=== PATIENT | male | born 1990 | race Two or more races ===

== ENCOUNTER 2024-02-17 12:31 | Inpatient (IN) | payer MEDICAID ==
[~2024-02-17] VITALS: Ht 185.4 cm; Wt 100.0 kg
--- NOTE | 2024-02-17 12:42 | ED.PDOC ---
History of Present Illness HPI Comments 34M BIBA w/ no prior Hx associated to the c/c of groin pain. Pt reports on having a mass on the groin on Monday night 02/13/24 and states that he does not lift any weights during that time but his "dog pulls". EMS state that the pt was picked up from home for groin pain, today at 0800. PMHx of HIV. Social Hx of marijuana use, but denies tobacco and alcohol use. Denies chills, fever, N/V/D, SOB, CP or other associated symptom's, modifiers, or recent injuries or sick contact at this time. Time Seen by MD: 12:30 Reviewed Notes: Nurses Notes, Conveyor Monitor Notes, Medications, Allergies Allergies: Coded Allergies: NO KNOWN ALLERGIES (Unverified , 02/17/24) Information Source: Patient, Emergency Med Personnel Mode of Arrival: EMS Severity: Moderate Timing: Days Duration: Since onset, Days Prehospital treatment: None Past Medical History PAST MEDICAL HISTORY: HIV Surgical History: Denies all surgeries Family History Family History: Reviewed,noncontributory to illness, Unknown Social History Smoker: Non-Smoker Alcohol: Denies ETOH Use Drugs: Marijuana Lives In: Home Constitutional: reports: others (Groin pain); denies: chills, diaphoresis, f atigue, fever, malaise, sweats, weakness EENTM: denies: blurred vision, double vision, ear bleeding, ear discharge, ear drainage, ear pain, ear ringing, eye pain, eye redness, hearing loss, mouth pain, mouth swelling, nasal discharge, nose bleeding, nose congestion, nose pain, photophobia, tearing, throat pain, throat swelling, voice changes, others Respiratory: denies: cough, hemoptysis, orthopnea, SOB at rest, shortness of breath, SOB with excertion, stridor, wheezing, others Cardiovascular: denies: chest pain, dizzy spells, diaphoresis, Dyspnea on exertion, edema, irregular heart beat, left arm pain, lightheadedness, palpitations, PND, syncope, others Gastrointestinal: denies: abdomen distended, abdominal pain, blood streaked bowels, constipated, diarrhea, dysphagia, difficulty swallowing, hematemesis, melena, nausea, poor appetite, poor fluid intake, rectal bleeding, rectal pain, vomiting, others Genitourinary: denies: burning, dysuria, flank pain, frequency, hematuria, incontinence, penile discharge, penile sore, pain, testicle pain, testicle swelling, urgency, others Neurological: denies: dizziness, fainting, headache, left sided numbness, left sided weakness, numbness, paresthesia, pre-existing deficit, right sided numbness, right sided weakness, seizure, speech problems, tingling, tremors, weakness, others Musculoskeletal: denies: back pain, gout, joint pain, joint swelling, muscle pain, muscle stiffness, neck pain, others Integumetry: denies: bruises, change in color, change in hair/nails, dryness, laceration, lesions, lumps, rash, wounds, others Allergic/Immunocompromised: denies: Difficulty Healing, Frequent Infections, Hives, Itching, others Hematologic/Lymphatic: denies: anemia, blood clots, easy bleeding, easy bruising, swollen glands, others Endocrine: denies: excessive hunger, excessive sweating, excessive thirst, excessive urination, flushing, intolerance to cold, intolerance to heat, unexplained weight gain, unexplained weight loss, others Psychiatric: denies: anxiety, bipolar disorder, depression, hopeless, panic disorder, schizophrenia, sleepless, suicidal, others All Other Systems: Reviewed and Negative Physical Exam Exam Comments Left buttock area rear to the gluteal crest feels swollen w/ no abscess. Left inguinal is tender and swollen General Appearance: No Apparent Distress, Normal HEENT: Normal ENT Inspection, Pharynx Normal, TMs Normal Neck: Full Range of Motion, Non-Tender, Normal, Normal Inspection Respiratory: Chest Non-Tender, Lungs Clear, No Accessory Muscle Use, No Respiratory Distress, Normal Breath Sounds Cardiovascular: No Edema, No JVD, No Murmur, No Gallop, Normal Peripheral Pulses, Regular Rate/Rhythm Breast Exam: Deferred Gastrointestinal: No Organomegaly, Non Tender, No Pulsatile Mass, Normal Bowel Sounds, Soft Genitalia: Deferred Pelvic: Deferred Rectal: Deferred Extremities: No calf tenderness, Normal capillary refill, Normal inspection, Normal range of motion, Non-tender, No pedal edema Musculoskeletal : Apperance: Normal Neurologic: Alert, pharmacy associate II-XII nml as Tested, No Motor Deficits, Normal Affect, Normal Mood, No Sensory Deficits Cerebellar Function: Normal Reflexes: Normal Skin: Dry, Normal Color, Warm, Other (left inner buttock with swelling and tenderness. no crepitus, no discoloration. left gential normal. left inguinal nodes tender and enlarged. no open wounds ) Lymphatic: No Adenopathy Was a procedure done? Was a procedure done?: No Differential Dx Considerations may include: cellulitis, necrotizing fasciitis, abscess, adenopathy, sepsis, enteroretal fistula, hernia X-Ray, Labs, Meds, VS Vital Signs Date Time Temp Pulse Resp B/P (MAP) Pulse Ox O2 Delivery O2 Flow Rate FiO2 02/17/24 16:00 102.2 113 20 111/48 (69) 93 102.2 02/17/24 14:00 115 20 122/56 (78) 93 02/17/24 13:30 122/56 02/17/24 13:26 124 22 93 Room Air* 0 21 02/17/24 13:00 103.1 124 22 116/49 (71) 93 103.1 02/17/24 13:00 103.1 124 22 02/17/24 12:39 103.2 122 18 114/95 (101) 99 Lab Test 02/17/24 16:10 02/17/24 14:32 02/17/24 13:48 02/17/24 13:29 Range/Units Troponin I High Sensitivity Pending 32 32 </=54 ng/L POC Glucose 86 70-106 mg/dl White Blood Count 15.7 H 4.4-10.8 10^3/uL Red Blood Count 3.49 L 4.5-5.90 10^6/uL Hemoglobin 9.9 L 13.5-17.5 g/dL Hematocrit 30.7 L 41.0-53.0 % Mean Corpuscular Volume 88.1 80.0-100.0 fL Mean Corpuscular Hemoglobin 28.3 28.0-32.0 pg Mean Corpuscular Hemoglobin Concent 32.1 32.0-36.0 g/dL Red Cell Distribution Width 14.1 11.8-14.3 % Platelet Count 258 140-450 10^3/uL Mean Platelet Volume 8.3 6.9-10.8 fL Neutrophils (%) (Auto) 78.2 37.0-80.0 % Lymphocytes (%) (Auto) 13.7 10.0-50.0 % Monocytes (%) (Auto) 7.7 0.0-12.0 % Eosinophils (%) (Auto) 0.1 0.0-7.0 % Basophils (%) (Auto) 0.3 0.0-2.0 % Neutrophils # (Auto) 12.3 H 1.6-8.6 10 ^3/uL Lymphocytes # (Auto) 2.1 0.4-5.4 10 ^3/uL Monocytes # (Auto) 1.2 0-1.3 10 ^3/uL Eosinophils # (Auto) 0 0-0.8 10 ^3/uL Basophils # (Auto) 0 0-0.2 10 ^3/uL Nucleated Red Blood Cells 0.0 % Sodium Level 136 136-145 mmol/L Potassium Level 3.5 3.5-5.1 mmol/L Chloride Level 103 98-107 mmol/L Carbon Dioxide Level 23 20-31 mmol/L Anion Gap 10 5-15 Blood Urea Nitrogen 15 9-23 mg/dL Creatinine 1.17 0.700-1.30 mg/dL Glomerular Filtration Rate Calc 83 >90 mL/min BUN/Creatinine Ratio 12.8 10.0-20.0 Serum Glucose 92 74-106 mg/dL Lactic Acid Level 0.9 0.4-2.0 mmol/L Calcium Level 9.2 8.7-10.4 mg/dL Total Bilirubin 1.5 H 0.2-1.0 mg/dL Aspartate Amino Transferase (AST) 15 13-40 U/L Alanine Aminotransferase (ALT) 14 7-40 U/L Alkaline Phosphatase 85 46-116 U/L Total Protein 6.9 5.7-8.2 g/dL Albumin 3.8 3.2-4.8 g/dL Current Medications Medications (Trade) Dose Ordered Sig/Maninder Route Start Time Stop Time Status Last Admin Sodium Chloride 3,000 ml @ 1,000 mls/hr Q3H ONCE IV 02/17/24 13:15 02/17/24 14:20 DC 02/17/24 13:15 Sodium Chloride 2,400 ml @ 2,400 mls/hr ONCE ONCE IV 02/17/24 13:30 02/17/24 14:29 DC 02/17/24 13:58 Piperacillin Sod/ Tazobactam Sod 100 ml @ 25 mls/hr Q8HR IV 02/17/24 14:00 02/17/24 13:57 Metronidazole 100 ml @ 100 mls/hr ONCE ONCE IV 02/17/24 13:30 02/17/24 14:29 DC 02/17/24 13:57 Time of 1ST Reevaluation: 13:00 Reevaluation 1ST: Unchanged Time of 2ND Reevaluation: 16:48 Reevaluation 2ND: Improved (nuclear monitoring technician- nsr) Time of 3RD Reevaluation: 16:51 Reevaluation 3RD: Improved (nuclear monitoring technician-nsr) Patient Education/Counseling: Diagnosis, Treatment, Prognosis Family Education/Counseling: No Family Present Additional Information - The following tests were ordered, and results were reviewed by me: (Labs, X- Ray, EKG) - Additional information was gathered from interviewing the following independent Historian:EMT - I reviewed and agreed with the following test results read by other provider: X-ray, CT - I discussed treatments and results with medical personnel and chain sales consultant due to pt's immunocompromised state, necrotizing fasciitis was considered a high differential. ct was ordered and antibiotic was ordered. the ct did not show abscess or signs of fasciitis. pt has severe cellulitis and reactive inguinal adenopathy. he will be admitted Sepsis Sepsis Reasesment Focused Exam Sepsis focused exam: focus exam completed, time: (450) Departure 1 Departure Time of Disposition: 16:52 Impression: Primary Impression: Sepsis Qualified Codes: A41.9 - Sepsis, unspecified organism Additional Impressions: Cellulitis Qualified Codes: L03.317 - Cellulitis of buttock Inguinal adenopathy HIV (human immunodeficiency virus infection) Qualified Codes: Z21 - Asymptomatic human immunodeficiency virus [hiv] infection status Disposition: 09 ADMITTED INPATIENT Admit to: [facility] Condition: Serious Critical Care Note Critical Care Time?: Yes (55 min-critical care time only) Critical care comment: due to the likelihood of patients condition suddenly deteriorating, the care requires my highest level of attention, readiness to intervene. my critical care include assessing and reassessing of patient's condition, response to treatments, ordering the appropriate tests, reviewing the results, ordering of treatments, discussing the care with medical personnel and consultants, and formulating a treatment plan, as well a reviewing various medical records. this include at least 50% face-face interaction, and does not include any procedures Stability Stability form required: No I personally scribed for VIVEK PLUMMER MD ([email or web address]) on 02/17/24 at 12:42. Electronically submitted by Raymundo Clay ([email or web address]). I personally scribed for VIVEK PLUMMER MD ([email or web address]) on 02/17/24 at 13:09. Electronically submitted by Raymundo Clay ([employer]). VIVEK PLUMMER MD Feb 17, 2024 12:42
[2024-02-17] MEDS: SODIUM CHLORIDE 0.9% 3,000 ML IV ONE (13:15)
[2024-02-17 13:26] VITALS: PULSE 124; RESP 22; O2SAT 93
[2024-02-17] MEDS: NOREPINEPHRINE 8 MG/250ML KIT 250 ML IV SCH (13:30)
[2024-02-17 13:50] LABS: Basophils # (auto) 0 10 ^3/uL (0-0.2); Basophils % (auto) 0.3 % (0.0-2.0); Eosinophils # (auto) 0 10 ^3/uL (0-0.8); Eosinophils % (auto) 0.1 % (0.0-7.0); Hematocrit 30.7 % (41.0-53.0); Hemoglobin 9.9 g/dL (13.5-17.5); Lymphocytes # (auto) 2.1 10 ^3/uL (0.4-5.4); Lymphocytes % (auto) 13.7 % (10.0-50.0); Mean Corpuscular Hemoglobin 28.3 pg (28.0-32.0); Mean Corpuscular Hgb Conc. 32.1 g/dL (32.0-36.0); Mean Corpuscular Volume 88.1 fL (80.0-100.0); Monocytes # (auto) 1.2 10 ^3/uL (0-1.3); Monocytes % (auto) 7.7 % (0.0-12.0); Neutrophils # (auto) 12.3 10 ^3/uL (1.6-8.6); Neutrophils % (auto) 78.2 % (37.0-80.0); Platelet Count (auto) 258 10^3/uL (140-450); Red Blood Cells 3.49 10^6/uL (4.5-5.90); Red Cell Distribution Width 14.1 % (11.8-14.3); White Blood Cell 15.7 10^3/uL (4.4-10.8)
[2024-02-17] MEDS: metroNIDAZOLE 500MG/100ML 100 ML IV ONE (13:57)
[2024-02-17] MEDS: PIPERACILLIN-TAZO 4.5GM 100 ML IV SCH (13:57)
[2024-02-17] MEDS: SODIUM CHLORIDE 0.9% 2,400 ML IV ONE (13:58)
[2024-02-17 14:07] LABS: Alanine Aminotransferase 14 U/L (7-40); Albumin 3.8 g/dL (3.2-4.8); Alkaline Phosphatase 85 U/L (46-116); Anion Gap 10 (5-15); Aspartate Aminotransferase 15 U/L (13-40); BUN/Creatinine Ratio 12.8 (10.0-20.0); Bilirubin, Total 1.5 mg/dL (0.2-1.0); Blood Urea Nitrogen 15 mg/dL (9-23); Calcium 9.2 mg/dL (8.7-10.4); Carbon Dioxide 23 mmol/L (20-31); Chloride 103 mmol/L (98-107); Glucose 92 mg/dL (74-106); Potassium 3.5 mmol/L (3.5-5.1); Sodium 136 mmol/L (136-145); Total Protein 6.9 g/dL (5.7-8.2)
[2024-02-17] MEDS: IOHEXOL 300 MG/ML 100ML BOTTLE IJ ONE (14:46)
--- NOTE | 2024-02-17 16:36 | DVH ---
Exam: CT PELVIS WITH CONTRAST ONLY History: r/o left gluteal abscess, necrotizing fasciitis Comparison Study: None available at time of dictation. Technique: Multidetector CT of the pelvis was performed from iliac crests to pubic symphysis after th e administration of intravenous contrast was administered during this examination. Portal venous imag ing was obtained. Axial, coronal and sagittal multiplanar reformats were performed by the technologis t on a separate workstation. Radiation Dose : CT Dose: CTDI volume is 16.07 mGy. Dose-length product is 598.94 mGy*cm Findings: There is mild soft tissue edema of the pelvis and upper thigh with significant left and moderate righ t medial inferior buttock soft tissue edema . There is no associated drainable fluid collection. There is extension of the soft tissue edema to the scrotum. Bilateral inguinal lymphadenopathy measuring up to 1.8 cm in short axis on the left 1.1 cm in short a xis on the right which are most likely reactive. Fluid-filled nondistended small bowel loops are noted over the lower abdomen and pelvis. Mild rectal wall thickening which is most likely from inadequate distension. No aneurysm or dissection of the visualized vasculatures. No significant atherosclerotic disease. The urinary bladder is unremarkable. Sclerotic foci of the pelvic bone and left proximal femur which may represent bone islands. Subchondral cystic changes of the right femoral head. IMPRESSION: There is mild soft tissue edema of the pelvis and upper thigh with significant left and moderate righ t medial inferior buttock soft tissue edema . There is no associated foci of air or drainable fluid c ollection. Bilateral inguinal lymphadenopathy which are most likely reactive.
[2024-02-17] MEDS: SODIUM CHLORIDE 0.9% 1,000 ML IV SCH (17:30)
[2024-02-17] MEDS ORDERED: TEMAZEPAM 15 MG CAP PO PRN (17:30)
[2024-02-17] MEDS ORDERED: DOCUSATE SOD 100 MG CAP PO PRN (17:30)
[2024-02-17] MEDS ORDERED: VANCOMYCIN PER PHARMACY 0 MG IV SCH (17:30)
[2024-02-17] MEDS ORDERED: MAALOX PLUS or MAALOX 30 ML PO PRN (17:30)
--- NOTE | 2024-02-17 17:49 | DVHHP2 ---
History of Present Illness Reason for Visit: groin pain History of Present Illness 34-year-old male was brought in by ambulance with multiple word complaints including the fact that he is having severe groin pain patient does have a past medical history of HIV and it is believed that currently have episodes of sepsis possibly secondary to a cellulitic infection some labs still pending patient's main complaint was having severe pain in the groin described as a mass CT pelvis shows soft tissue swelling and edema cellulitis is suspected patient was recommended for admission and further evaluation and management for sepsis in the setting of suspected cellulitis Infectious disease: HIV Review of Systems Constitutional: Yes: Fever, Weakness; No: Chills, Sweats, Malaise, Other Eyes: No: Pain, Vision change, Conjunctivae inflammation, Eyelid inflammation, Other, Redness Respiratory: No: Cough, Dry, Shortness of breath, SOB with excertion, Wheezing, Hemoptysis, Pleuritic Pain, Sputum, Wheezing, Other Cardiovascular: No: Chest Pain, Palpitations, Orthopnea, Paroxysmal Noc. Dyspnea, Edema, Lt Headedness, Other Gastrointestinal: Abdominal Pain; No: Nausea, Vomiting, Diarrhea, Constipation, Melena, Hematochezia, Other Genitourinary: No Dysuria, No Frequency, No Incontinence, No Hematuria, No Retention, No Other Musculoskeletal: leg pain; No: other, neck pain, shoulder pain, arm pain, back pain, hand pain, foot pain Skin: Rash; No: Lesions, Jaundice, Bruising, Other Neurological: No: Weakness, Numbness, Incoordination, Change in speech, Confusion, Seizures, Other Allergies: Coded Allergies: NO KNOWN ALLERGIES (Unverified , 02/17/24) Medications Current Medications Medications Dose Ordered Sig/Maninder Route Start Time Stop Time Status Last Admin Dose Admin Norepinephrine Bitartrate 250 ml @ 3.75 mls/hr Q24H IV 02/17/24 13:30 Piperacillin Sod/ Tazobactam Sod 100 ml @ 25 mls/hr Q8HR IV 02/17/24 14:00 02/17/24 13:57 25 MLS/HR Exam Vital Signs Vital Signs Date Time Temp Pulse Resp B/P (MAP) Pulse Ox O2 Delivery O2 Flow Rate FiO2 02/17/24 16:00 102.2 113 20 111/48 (69) 93 102.2 11/30/24 13:26 Room Air* 0 21 General Appearance: Alert, Oriented X3, Cooperative, moderate distress HEENT: Atraumatic, PERRLA, EOMI Respiratory: Normal air movement Cardiovascular: Regular rate (Tachycardia), Normal S1, Normal S2 Abdominal: Normal bowel sounds, Soft, No tenderness Extremities: No clubbing, No cyanosis, No edema (Erythema in the groin area) Skin: No rashes (Erythema in the groin and pelvis induration), No breakdown, No significant lesion Labs/Xrays Labs Test 02/17/24 16:10 02/17/24 13:48 02/17/24 13:29 Range/Units Troponin I High Sensitivity 33 </=54 ng/L POC Glucose 86 70-106 mg/dl White Blood Count 15.7 H 4.4-10.8 10^3/uL Red Blood Count 3.49 L 4.5-5.90 10^6/uL Hemoglobin 9.9 L 13.5-17.5 g/dL Hematocrit 30.7 L 41.0-53.0 % Mean Corpuscular Volume 88.1 80.0-100.0 fL Mean Corpuscular Hemoglobin 28.3 28.0-32.0 pg Mean Corpuscular Hemoglobin Concent 32.1 32.0-36.0 g/dL Red Cell Distribution Width 14.1 11.8-14.3 % Platelet Count 258 140-450 10^3/uL Mean Platelet Volume 8.3 6.9-10.8 fL Neutrophils (%) (Auto) 78.2 37.0-80.0 % Lymphocytes (%) (Auto) 13.7 10.0-50.0 % Monocytes (%) (Auto) 7.7 0.0-12.0 % Eosinophils (%) (Auto) 0.1 0.0-7.0 % Basophils (%) (Auto) 0.3 0.0-2.0 % Neutrophils # (Auto) 12.3 H 1.6-8.6 10 ^3/uL Lymphocytes # (Auto) 2.1 0.4-5.4 10 ^3/uL Monocytes # (Auto) 1.2 0-1.3 10 ^3/uL Eosinophils # (Auto) 0 0-0.8 10 ^3/uL Basophils # (Auto) 0 0-0.2 10 ^3/uL Nucleated Red Blood Cells 0.0 % Sodium Level 136 136-145 mmol/L Potassium Level 3.5 3.5-5.1 mmol/L Chloride Level 103 98-107 mmol/L Carbon Dioxide Level 23 20-31 mmol/L Anion Gap 10 5-15 Blood Urea Nitrogen 15 9-23 mg/dL Creatinine 1.17 0.700-1.30 mg/dL Glomerular Filtration Rate Calc 83 >90 mL/min BUN/Creatinine Ratio 12.8 10.0-20.0 Serum Glucose 92 74-106 mg/dL Lactic Acid Level 0.9 0.4-2.0 mmol/L Calcium Level 9.2 8.7-10.4 mg/dL Total Bilirubin 1.5 H 0.2-1.0 mg/dL Aspartate Amino Transferase (AST) 15 13-40 U/L Alanine Aminotransferase (ALT) 14 7-40 U/L Alkaline Phosphatase 85 46-116 U/L Total Protein 6.9 5.7-8.2 g/dL Albumin 3.8 3.2-4.8 g/dL Assessment/Plan Assessment/Plan Admit to telemetry Sepsis believed to be secondary to cellulitis UA still pending Drug screen pending Possibility that infection and sepsis secondary to injection of the location Unconfirmed ID consultation for HIV +sepsis management IV hydration IV antibiotics dual therapy Monitor closely for signs of worsening condition Patient with elevated temperatures Continue with antipyretics Monitor for worsening signs of sepsis consider upgrading to PADILLA if necessary Also monitor for drug reactions or drug like withdrawal Chest x-ray ordered for evaluation of lungs study pending Plan discussed with: Patient My Orders Orders - NERI JOHANSEN MD Procedure Category Date Status Time * Infectious Anai- CONS 02/17/24 Transmitted Erik Mercado 17:19 Vancomycin Per PHA 02/17/24 Logged Pharmacy 17:30 Piperacillin-Tazob PHA 02/17/24 Logged 3.375gm (Zosyn 3.375g 22:00 Admit ADMIT 02/17/24 Transmitted 17:19 Code Status CODE 02/17/24 Transmitted 17:19 Vital Signs [facility] 02/17/24 In Process 17:19 Review Orders With ELIZABETH 02/17/24 In Process Adm 17:19 Consistent DIET 02/17/24 Transmitted Carb(Ccho)Diabetes Dinner Sodium Chloride 0.9% [facility] 02/17/24 Logged 17:30 Lorazepam Tablet [facility] 02/17/24 Logged (Ativan Tablet) 17:30 Alum & Mag [facility] 02/17/24 Logged Hydrox-Simethicone 17:30 Docusate Sodium [facility] 02/17/24 Logged Capsule (Colace 17:30 Acetaminophen Tablet [facility] 02/17/24 Logged (Tylenol Tablet) 17:30 Temazepam (Restoril) PHA 02/17/24 Logged 17:30 Notify Md Of Changes [facility] 02/17/24 In Process From Base 17:19 Advance Directive ELIZABETH 02/17/24 In Process 17:19 Basic Metabolic Panel LAB 02/18/24 Verified 04:00 Urinalysis LAB 02/17/24 Logged 17:19 Complete Blood Count LAB 02/18/24 Verified 04:00 Patient Condition ORDERS 02/17/24 Transmitted 17:19 Allergies ELIZABETH 02/17/24 In Process 17:19 Hydrocodone-Acet PH[facility] 02/17/24 Logged 5/325mg Tab (Minerva 17:30 Ondansetron Hcl PHA 02/17/24 Logged (Zofran) 17:30 Morphine Sulfate PHA 02/17/24 Logged Injection 17:30 Notify Md Of Changes [facility] 02/17/24 In Process From Base 17:19 Oriental Rug Stretcher For [facility] 02/17/24 In Process 24 Hours 17:19 Oxygen By Nasal RT 02/17/24 Transmitted Cannula 17:19 Chest Xray 1 View XY 02/17/24 Logged 17:19 Problem List: (1) Cellulitis (2) Sepsis (3) HIV (human immunodeficiency virus infection) (4) Inguinal adenopathy Date of Service: Feb 17, 2024 Billing Provider: NERI JOHANSEN MD Common Visit Codes: 40594-[id number] INP/OBS CARE (HIGH) NERI JOHANSEN MD Feb 17, 2024 17:49
--- NOTE | 2024-02-17 18:20 | DVH ---
CHEST RADIOGRAPH Indication: sepsis Technique: Single frontal view of the chest was obtained Comparison: None FINDINGS: Lines and Tubes: None Lungs: No focal consolidation. Pleura: No effusion. No pneumothorax. Cardiomediastinal contours: Unremarkable Bones: No acute osseous abnormality. IMPRESSION: No acute cardiopulmonary disease.
[2024-02-17 19:29] VITALS: PULSE 121; RESP 22; O2SAT 93
[2024-02-17 19:43] LABS: Urine Bacteria FEW /hpf (None Seen); Urine Blood 1+ /uL (Negative); Urine Clarity Clear (Clear); Urine Color Yellow (Yellow); Urine Protein, UAD 1+ (Negative); Urine Urobilinogen 2 mg/dL (Negative); Urine WBC <1 /hpf (0 - 3); Urine pH 6.5 (5.0-9.0)
[2024-02-17 19:44] LABS: Urine Specific Gravity > 1.035 (1.001-1.035)
[2024-02-17] MEDS: VANCOMYCIN 1GM/250ML KIT 200 ML IV SCH (19:48)
[2024-02-17] MEDS: ACETAMINOPHEN 325 MG TAB PO PRN (21:35)
[2024-02-17] MEDS: LORazepam 0.5 MG TAB PO PRN (21:35)
[2024-02-17] MEDS: MORPHINE SULFATE INJ 2 MG/ml SYRG IV PRN (21:37)
[2024-02-17] MEDS: PIPERACILLIN-TAZOB 3.375GM 100 ML IV SCH (23:10)
[2024-02-18 06:40] LABS: Basophils # (auto) 0 10 ^3/uL (0-0.2); Basophils % (auto) 0.2 % (0.0-2.0); Eosinophils # (auto) 0.1 10 ^3/uL (0-0.8); Eosinophils % (auto) 0.3 % (0.0-7.0); Hematocrit 35.4 % (41.0-53.0); Lymphocytes # (auto) 2.5 10 ^3/uL (0.4-5.4); Lymphocytes % (auto) 12.9 % (10.0-50.0); Mean Corpuscular Hemoglobin 28.4 pg (28.0-32.0); Mean Corpuscular Hgb Conc. 31.1 g/dL (32.0-36.0); Mean Corpuscular Volume 91.2 fL (80.0-100.0); Monocytes # (auto) 1.2 10 ^3/uL (0-1.3); Neutrophils # (auto) 15.8 10 ^3/uL (1.6-8.6); Neutrophils % (auto) 80.6 % (37.0-80.0); Nucleated Red Blood Cells % 0.1 %; Platelet Count (auto) 264 10^3/uL (140-450); Red Blood Cells 3.88 10^6/uL (4.5-5.90); Red Cell Distribution Width 14.2 % (11.8-14.3); White Blood Cell 19.6 10^3/uL (4.4-10.8)
[2024-02-18 06:49] LABS: Chloride 103 mmol/L (98-107)
[2024-02-18 06:50] LABS: Anion Gap 9 (5-15); Calcium 9.4 mg/dL (8.7-10.4); Carbon Dioxide 23 mmol/L (20-31)
[2024-02-18 06:55] LABS: BUN/Creatinine Ratio 8.2 (10.0-20.0); Blood Urea Nitrogen 10 mg/dL (9-23); Glucose 102 mg/dL (74-106); Sodium 135 mmol/L (136-145)
[2024-02-18 07:30] VITALS: PULSE 91; RESP 14; O2SAT 98
[2024-02-18] MEDS: VANCOMYCIN 1GM/250ML KIT 200 ML IV SCH (11:19)
[2024-02-18] MEDS: PIPERACILLIN-TAZOB 3.375GM 100 ML IV SCH (12:22)
--- NOTE | 2024-02-18 13:28 | DVHPN2 ---
Reviewed: Care Plan, H&P, Labs, Medications, Previous Orders, Radiology Changes from previous H/P or p: No Changes Eyes: No Pain, No Vision change, No Conjunctivae inflammation, No Eyelid inflammation, No Other, No Redness Cardiovascular: No Chest Pain, No Palpitations, No Orthopnea, No Paroxysmal Noc. Dyspnea, No Edema, No Lt Headedness, No Other Respiratory: No Cough, No Dry, No Shortness of breath, No SOB with excertion, No Wheezing, No Hemoptysis, No Pleuritic Pain, No Sputum, No Other Gastrointestinal: No Nausea, No Vomiting; Abdominal Pain; No Diarrhea, No Constipation, No Melena, No Hematochezia, No Other Genitourinary: No Dysuria, No Frequency, No Incontinence, No Hematuria, No Retention, No Other Musculoskeletal: No other, No neck pain, No shoulder pain, No arm pain, No back pain, No hand pain; leg pain; No foot pain Skin: Rash; No Lesions, No Jaundice, No Bruising, No Other Objective Vitals Vital Signs Date Time Temp Pulse Resp B/P (MAP) Pulse Ox O2 Delivery O2 Flow Rate FiO2 02/18/24 12:00 106 02/18/24 11:49 16 125/37 02/18/24 07:30 98 02/18/24 07:30 Room Air* 0 21 02/17/24 22:35 100.3 Intake/Output Intake and Output 02/18/24 07:00 Intake Total 4350 ml Balance 4350 ml Intake IV Total 4350 ml Medications Current Medications Medications Dose Ordered Sig/Maninder Route Start Time Stop Time Status Last Admin Dose Admin Norepinephrine Bitartrate 250 ml @ 3.75 mls/hr Q24H IV 02/17/24 13:30 Vancomycin HCl 0 ml @ 0 mls/hr UD IV 02/17/24 17:30 Sodium Chloride 1,000 ml @ 100 mls/hr Q10H IV 02/17/24 17:30 02/18/24 12:12 100 MLS/HR Lorazepam 0.5 mg Q6HP PRN PO 02/17/24 17:30 02/17/24 21:35 0.5 MG Al Hydrox/Mg Hydrox/Simethicone 30 ml Q6HP PRN PO 02/17/24 17:30 Docusate Sodium 100 mg BIDPRN PRN PO 02/17/24 17:30 Acetaminophen 650 mg Q6HP PRN PO 02/17/24 17:30 02/17/24 21:35 650 MG Temazepam 15 mg QHSP PRN PO 02/17/24 17:30 Acetaminophen/ Hydrocodone Bitart 1 tab Q4HP PRN PO 02/17/24 17:30 Ondansetron HCl 4 mg Q4HP PRN IV 02/17/24 17:30 Morphine Sulfate 2 mg Q4HPRN PRN IV 02/17/24 17:30 02/18/24 11:19 2 MG Piperacillin Sod/ Tazobactam Sod 100 ml @ 25 mls/hr Q8H IV 02/18/24 12:00 02/18/24 12:22 25 MLS/HR Vancomycin HCl 200 ml @ 200 mls/hr Q8H IV 02/18/24 09:00 02/18/24 11:19 200 MLS/HR Laboratory Results Laboratory Tests 02/18/24 06:19 Chemistry Test 02/17/24 13:29 02/18/24 06:19 Albumin 3.8 g/dL (3.2-4.8) Calcium Level 9.2 mg/dL (8.7-10.4) 9.4 mg/dL (8.7-10.4) Total Protein 6.9 g/dL (5.7-8.2) LFT Test 02/17/24 13:29 Alanine Aminotransferase (ALT) 14 U/L (7-40) Alkaline Phosphatase 85 U/L (46-116) Aspartate Amino Transferase (AST) 15 U/L (13-40) Total Bilirubin 1.5 mg/dL (0.2-1.0) H Urinalysis Test 02/17/24 19:13 Urine Color Yellow (Yellow) Urine Clarity Clear (Clear) Urine pH 6.5 (5.0-9.0) Urine Specific Stewart > 1.035 (1.001-1.035) Urine Protein 1+ (Negative) H Urine Ketones Negative (Negative) Urine Blood 1+ /uL (Negative) H Urine Nitrite Negative (Negative) Urine Bilirubin Negative (Negative) Urine Urobilinogen 2 mg/dL (Negative) H Urine Leukocyte Esterase Negative /uL (Negative) Urine RBC 33 /hpf (0 - 3) Urine WBC <1 /hpf (0 - 3) Urine Squamous Epithelial Cells Few /hpf (<5) Urine Bacteria Few /hpf (None Seen) H Urine Glucose Normal mg/dL (Normal) Labs and/or images reviewed: Labs reviewed by me, Image(s) reviewed by me Assessment/Plan Assessment/Plan Sepsis secondary to cellulitis of the pelvis: Vancomycin Zosyn History of necrotizing fasciitis History of left gluteal abscess HIV infection Plan discussed with: Patient Date of Service: Feb 18, 2024 Billing Provider: CHANTEL CALLAHAN MD Common Visit Codes: [id number] INP/OBS CARE(HIGH) CHANTEL CALLAHAN MD Feb 18, 2024 13:28
[2024-02-18 17:57] VITALS: BP 94/55; PULSE 95; RESP 18; TEMP 98.8; O2SAT 96
[2024-02-18] MEDS: HYDROcodone-ACET 5/325MG TAB PO PRN (19:21)
[2024-02-18 20:00] VITALS: PULSE 98; RESP 17; O2SAT 97
[2024-02-18 21:00] VITALS: BP 106/53; PULSE 94; RESP 17; TEMP 97.9; O2SAT 96
--- NOTE | 2024-02-18 23:35 | DVHINCON2 ---
"Date of service: Feb 18, 2024 Family History: Patient reports no known family medical history. Allergies: Coded Allergies: NO KNOWN ALLERGIES (Unverified , 02/17/24) Current Medications Current Medications Medications (Trade) Dose Ordered Sig/Maninder Route PRN Reason Start Time Stop Time Status Last Admin Piperacillin Sod/ Tazobactam Sod 100 ml @ 25 mls/hr Q8H IV 02/18/24 12:00 02/18/24 20:44 Vancomycin HCl 200 ml @ 200 mls/hr Q8H IV 02/18/24 09:00 02/18/24 17:10 Vital Signs Vital Signs Date Time Temp Pulse Resp B/P (MAP) Pulse Ox O2 Delivery O2 Flow Rate FiO2 02/18/24 21:00 97.9 94 17 106/53 (70) 96 97.9 02/18/24 17:57 Room Air* 0 21 Labs/Diagnostic Data Labs Test 02/18/24 06:19 02/17/24 19:13 02/17/24 16:10 02/17/24 13:48 Range/Units White Blood Count 19.6 H 4.4-10.8 10^3/uL Red Blood Count 3.88 L 4.5-5.90 10^6/uL Hemoglobin 11.0 L 13.5-17.5 g/dL Hematocrit 35.4 #L 41.0-53.0 % Mean Corpuscular Volume 91.2 80.0-100.0 fL Mean Corpuscular Hemoglobin 28.4 28.0-32.0 pg Mean Corpuscular Hemoglobin Concent 31.1 L 32.0-36.0 g/dL Red Cell Distribution Width 14.2 11.8-14.3 % Platelet Count 264 140-450 10^3/uL Mean Platelet Volume 8.0 6.9-10.8 fL Neutrophils (%) (Auto) 80.6 H 37.0-80.0 % Lymphocytes (%) (Auto) 12.9 10.0-50.0 % Monocytes (%) (Auto) 6.0 0.0-12.0 % Eosinophils (%) (Auto) 0.3 0.0-7.0 % Basophils (%) (Auto) 0.2 0.0-2.0 % Neutrophils # (Auto) 15.8 H 1.6-8.6 10 ^3/uL Lymphocytes # (Auto) 2.5 0.4-5.4 10 ^3/uL Monocytes # (Auto) 1.2 0-1.3 10 ^3/uL Eosinophils # (Auto) 0.1 0-0.8 10 ^3/uL Basophils # (Auto) 0 0-0.2 10 ^3/uL Nucleated Red Blood Cells 0.1 % Sodium Level 135 L 136-145 mmol/L Potassium Level 4.0 3.5-5.1 mmol/L Chloride Level 103 98-107 mmol/L Carbon Dioxide Level 23 20-31 mmol/L Anion Gap 9 5-15 Blood Urea Nitrogen 10 9-23 mg/dL Creatinine 1.22 0.700-1.30 mg/dL Glomerular Filtration Rate Calc 79 >90 mL/min BUN/Creatinine Ratio 8.2 L 10.0-20.0 Serum Glucose 102 74-106 mg/dL Calcium Level 9.4 8.7-10.4 mg/dL Urine Color Yellow Yellow Urine Clarity Clear Clear Urine pH 6.5 5.0-9.0 Urine Specific [place] > 1.035 H 1.001-1.035 Urine Protein 1+ H Negative Urine Ketones Negative Negative Urine Blood 1+ H Negative /uL Urine Nitrite Negative Negative Urine Bilirubin Negative Negative Urine Urobilinogen 2 H Negative mg/dL Urine Leukocyte Esterase Negative Negative /uL Urine RBC 33 0 - 3 /hpf Urine WBC <1 0 - 3 /hpf Urine Squamous Epithelial Cells Few <5 /hpf Urine Bacteria Few H None Seen /hpf Urine Glucose Normal Normal mg/dL Troponin I High Sensitivity 33 </=54 ng/L POC Glucose 86 70-106 mg/dl Test 02/17/24 13:29 Range/Units Lactic Acid Level 0.9 0.4-2.0 mmol/L Total Bilirubin 1.5 H 0.2-1.0 mg/dL Aspartate Amino Transferase (AST) 15 13-40 U/L Alanine Aminotransferase (ALT) 14 7-40 U/L Alkaline Phosphatase 85 46-116 U/L Total Protein 6.9 5.7-8.2 g/dL Albumin 3.8 3.2-4.8 g/dL Microbiology Date/Time Source Procedure Growth Status 02/17/24 13:29 Blood Blood Culture - Preliminary NO GROWTH AFTER 24 HOURS OF INCUBATION. Resulted Problems(with codes): (1) Cellulitis (2) Sepsis (3) HIV (human immunodeficiency virus infection) (4) Inguinal adenopathy Plan/Recommendation ASSESSMENT AND PLAN: ID Problem List: - Recurrent groin cellulitis - HIV infection - hx of Syphilis - hx of Gonorrhea - Severe groin pain - Sepsis Assessment This is a 34 y.o. male with a past medical history of HIV infection who presents with severe groin pain and recurrent cellulitis of the groin. In terms of his HIV history, the patient follows with Dr. Kaufman in [facility]. His CD4 count in June 2023 was 779; viral load undetectable. He is compliant with his home regimen of Biktarvy. He has a known history of syphilis and gonorrhea, last RPR 1:4, and a past positive hepatitis C antibody. On physical exam, the patient is noted to have redness and irritation of the groin area. No deep ulcerations, rashes, or significant ulcers to suggest sexually transmitted diseases. Laboratory findings on admission include leukocytosis with WBC 15.7, hemoglobin 9.9, platelets 258, sodium 135, BUN 10, creatinine 1.2. Urinalysis shows leukocyte esterase negative. Imaging studies: - Pelvic CT scan shows mild soft tissue edema of the pelvic and upper thigh with significant left and moderate right inferior buttock tissue edema. No associated foci of air or adrenal fluid collection. Bilateral inguinal hernias most likely reactive. - Chest X-ray shows no cardiopulmonary disease. Plan: - Continue vancomycin and Zosyn for now. - Recommend testing for syphilis and gonorrhea. - will fu on blood cultures. - Follow up on urine drug screen. - hold home HIV regimen at this time pending further evaluation. - Monitor vital signs and assess the need for blood pressure support. Isolation Precautions: Standard Assessment and plan was discussed with the patient as written above. Plan is subject to change pending incorporation of new incoming information/diagnostics. Updates may be added as addendum at the bottom (OR TOP) of this note. Thank you for the interesting consult. ID will continue to follow. Please contact Infectious Disease for any questions or concerns. Christin Mercado M.D. [facility] Ph: ? - History: The patient's chart and medications were reviewed in detail, and the patient was seen and examined. History obtained from: Patient Hamilton Carey is a 34 y.o. male with a past medical history of HIV infection who presents with severe groin pain. He has a history of recurrent cellulitis of the groin. In terms of his HIV history, he follows with Dr. Kaufman in [facility]. His CD4 count in June 2023 was 779; viral load undetectable. He is compliant with his home regimen of Biktarvy. He has a known history of syphilis and gonorrhea, last RPR 1:4, and a past positive hepatitis C antibody. He denies new sexual partners. No history of hidradenitis suppurativa, inguinal hernia, or diabetes. Denies smoking, alcohol use, or IV drug use. Review of Systems: A complete 10-system review of systems was completed and negative except as noted in the HPI or here. ROS: - CONSTITUTIONAL: Denies weight loss, fever, and chills. - HEENT: Denies changes in vision and hearing. - RESPIRATORY: Denies shortness of breath and cough. - CV: Denies palpitations and chest pain. - GI: Denies abdominal pain, nausea, vomiting, and diarrhea. - : Denies dysuria and urinary frequency. - MSK: Denies myalgia and joint pain. - SKIN: Denies rash and pruritus. - NEUROLOGICAL: Denies headache and syncope. - PSYCHIATRIC: Denies recent changes in mood. Denies anxiety and depression. Past Medical History: - HIV infection - Recurrent groin cellulitis - Syphilis - Gonorrhea - Positive hepatitis C antibody Past Surgical History: History reviewed. No pertinent surgical history. Home Medications: Prior to Admission Medications | Medication | Sig | |-|-| | Biktarvy (bictegravir/emtricitabine/tenofovir alafenamide) 50 mg/200 mg/25 mg tablet | Take 1 tablet by mouth daily. | Allergies: No known drug allergies. Family History: Family history is non-contributory. Social History: - Marital status: Not specified. - Occupation: Not specified. - Tobacco Use: Never smoked. - Alcohol Use: Denies. - Illicit Drug Use: Denies. - Sexual Activity: Denies new sexual partners. - Objective: Vital Signs on Arrival: - Temp: 97.9F - BP: 106/53 mmHg - Pulse: 94 bpm - Resp: 18 breaths per minute Most Recent Vital Signs: - [Data not provided] Admission Weight: - [Data not provided] - Physical Exam: General: NAD Neck: Supple. No masses. HEENT: PERRL. Normal lids and conjunctiva. Moist mucous membranes. Oropharynx without lesions, exudates, or excessive erythema. Normal appearance of the external aspects of the nose and ears. Heart: Regular rhythm, normal rate. No murmur. No lower extremity edema. Lungs: Normal respiratory effort. Clear to auscultation bilaterally. No wheezes. No crackles. Abdomen: Soft. Non-tender. Non-distended. No masses or abdominal hernia. MSK: No digital cyanosis. Normal strength and tone in all 4 limbs. Skin: Warm and dry. Redness and irritation of the groin area. Neuro: Alert. No facial droop or slurred speech. Extra-ocular movements intact. Sensation intact to soft touch in all 4 limbs. Psych: Appropriate mood. Full affect. Oriented to person, place, time, and situation. - Diagnostic Studies: Available diagnostic studies were reviewed personally. Significant relevant results and findings are outlined below or addressed in the Assessment and Plan above. Laboratory Data: - WBC: 15.7 (elevated) - Hemoglobin: 9.9 - Platelets: 258 - Sodium: 135 BUN: 10 - Creatinine: 1.2 - Urinalysis: Leukocyte esterase negative Imaging Studies: Pelvic CT Scan Impression: 1. Mild soft tissue edema of the pelvic and upper thigh with significant left and moderate right inferior buttock tissue edema. 2. No associated foci of air or adrenal fluid collection. 3. Bilateral inguinal hernias most likely reactive. - Chest X-ray Impression: 1. No cardiopulmonary disease. Plan discussed with: Patient CHRISTIN MERCADO MD Feb 18, 2024 23:35"
[2024-02-19] VITALS (7 sets, daily range): BP systolic 90–113; BP diastolic 32–61; PULSE 77–93; RESP 16–19; TEMP 97.8–98.9; O2SAT 94–98
--- NOTE | 2024-02-19 15:28 | DVHPN2 ---
Assessment/Plan Assessment/Plan Progress note Subjective 34-year-old male with HIV, compliant with Biktarvy, last CD4 700, viral load undetectable, following with ID in [place] admitted for recurrent groin abscess Patient is seen by me today during rounds Complained of new onset diarrhea, 4-5 times the last 24 hours, watery, no blood Objective Physical exam Alert, oriented x3 PERRLA No JVD Clear breath sounds bilaterally S1-S2 regular rate and rhythm no murmur Abdomen soft nontender, no organomegaly Moving all four extremities No lower extremity edema Groin abscess Lab Leukocytosis Dirty UA 07/11 CD4 776, viral load undetectable Imaging CT showed groin abscess Assessment and plan HIV, CD4 700s Sepsis secondary to groin abscess History of syphilis History of gonorrhea Diarrhea ID consult appreciated Continue with Zosyn and vanc Send stool culture, WBC and occult blood, C diff Continue with Biktarvy Replete electrolytes Diet regular DVT prophylaxis ambulatory Plan discussed with: Patient My Orders Orders - BEST WAITE MD Procedure Category Date Status Time Stool Bacterial PASTORA 02/19/24 Transmitted Culture 15:24 Stool Occult Blood LAB 02/19/24 Transmitted 15:24 Stool Wbc LAB 02/19/24 Transmitted 15:24 Date of Service: Feb 19, 2024 Billing Provider: BEST WAITE MD Common Visit Codes: [id number] INP/OBS CARE(HIGH) BEST WAITE MD Feb 19, 2024 15:28
--- NOTE | 2024-02-19 22:26 | DVHPN2 ---
Consult Progress Note Date Seen: Feb 19, 2024 Subjective Patient reports: Feels better (fevers resolved ongooing tenderness of groin) Objective vital signs Vital Sign Date Time Temp Pulse Resp B/P (MAP) Pulse Ox O2 Delivery O2 Flow Rate FiO2 02/19/24 20:52 82 18 114/64 02/19/24 17:00 98.0 94 98.0 02/19/24 08:00 Room Air* 0 21 Total Intake and Output 02/18/24 02/18/24 02/19/24 15:00 23:00 07:00 Intake Total 1200 ml Output Total 300 ml Balance 900 ml medications Current Medications Medications Dose Ordered Sig/Maninder Route Start Time Stop Time Status Last Admin Dose Admin Vancomycin HCl 0 ml @ 0 mls/hr UD IV 02/17/24 17:30 Sodium Chloride 1,000 ml @ 100 mls/hr Q10H IV 02/17/24 17:30 02/19/24 20:54 100 MLS/HR Lorazepam 0.5 mg Q6HP PRN PO 02/17/24 17:30 02/18/24 20:06 0.5 MG Al Hydrox/Mg Hydrox/Simethicone 30 ml Q6HP PRN PO 02/17/24 17:30 Acetaminophen 650 mg Q6HP PRN PO 02/17/24 17:30 02/17/24 21:35 650 MG Acetaminophen/ Hydrocodone Bitart 1 tab Q4HP PRN PO 02/17/24 17:30 02/18/24 19:21 1 TAB Ondansetron HCl 4 mg Q4HP PRN IV 02/17/24 17:30 Morphine Sulfate 2 mg Q4HPRN PRN IV 02/17/24 17:30 02/19/24 20:52 2 MG Piperacillin Sod/ Tazobactam Sod 100 ml @ 25 mls/hr Q8H IV 02/18/24 12:00 02/19/24 21:00 25 MLS/HR Vancomycin HCl 200 ml @ 200 mls/hr Q8H IV 02/18/24 09:00 02/19/24 16:50 200 MLS/HR PHYSICAL EXAM: - GENERAL: Alert and oriented x 3. No acute distress. Well-nourished. - EYES: EOMI. Anicteric. - HENT: Moist mucous membranes. No scleral icterus. No cervical lymphadenopathy. - LUNGS: Clear to auscultation bilaterally. No accessory muscle use. - CARDIOVASCULAR: Regular rate and rhythm. No murmur. No JVD. - ABDOMEN: Soft, non-tender and non-distended. No palpable masses. - EXTREMITIES: No edema. Non-tender.SKIN: No rashes or lesions. Warm. - NEUROLOGIC: No focal neurological deficits. CN II-XII grossly intact, but not individually tested. - PSYCHIATRIC: Cooperative. Appropriate mood and affect. laboratory and microbiology Laboratory Tests 02/18/24 06:19 Test 02/18/24 06:19 Range/Units Serum Glucose 102 74-106 mg/dL Problem List/Assessment/Plan Problem List/Assessment/Plan Assessment/Plan Problems(with codes): (1) Cellulitis (2) Sepsis (3) HIV (human immunodeficiency virus infection) (4) Inguinal adenopathy Plan/Recommendation ASSESSMENT AND PLAN: ID Problem List: - Recurrent groin cellulitis - HIV infection - hx of Syphilis - hx of Gonorrhea - Severe groin pain - Sepsis Assessment This is a 34 y.o. male with a past medical history of HIV infection who presents with severe groin pain and recurrent cellulitis of the groin. In terms of his HIV history, the patient follows with Dr. Kaufman in [facility]. His CD4 count in June 2023 was 779; viral load undetectable. He is compliant with his home regimen of Biktarvy. He has a known history of syphilis and gonorrhea, last RPR 1:4, and a past positive hepatitis C antibody. On physical exam, the patient is noted to have redness and irritation of the groin area. No deep ulcerations, rashes, or significant ulcers to suggest sexually transmitted diseases. Laboratory findings on admission include leukocytosis with WBC 15.7, hemoglobin 9.9, platelets 258, sodium 135, BUN 10, creatinine 1.2. Urinalysis shows leukocyte esterase negative. Imaging studies: - Pelvic CT scan shows mild soft tissue edema of the pelvic and upper thigh with significant left and moderate right inferior buttock tissue edema. No associated foci of air or adrenal fluid collection. Bilateral inguinal hernias most likely reactive. - Chest X-ray shows no cardiopulmonary disease. RPR is 1:2, patients baseline Plan: - Continue Zosyn, switch vancomycin to Bactrim. - gonorrhea and chlamydia - will fu on blood cultures. - Follow up on urine drug screen. - hold home HIV regimen at this time pending further evaluation. - Monitor vital signs and assess the need for blood pressure support. Isolation Precautions: Standard Assessment and plan was discussed with the patient as written above. Plan is subject to change pending incorporation of new incoming information/diagnostics. Updates may be added as addendum at the bottom (OR TOP) of this note. Thank you for the interesting consult. ID will continue to follow. Please contact Infectious Disease for any questions or concerns. Christin Mercado M.D. [facility] Ph: ? Plan discussed with: Patient CHRISTIN MERCADO MD Feb 19, 2024 22:26
[2024-02-20] VITALS (7 sets, daily range): BP systolic 97–116; BP diastolic 49–64; PULSE 71–87; RESP 16–19; TEMP 97.5–98.8; O2SAT 96–99
[2024-02-20 07:14] LABS: Anion Gap 8 (5-15); Calcium 9.5 mg/dL (8.7-10.4); Carbon Dioxide 24 mmol/L (20-31); Chloride 105 mmol/L (98-107); Sodium 137 mmol/L (136-145)
[2024-02-20 07:19] LABS: Blood Urea Nitrogen 12 mg/dL (9-23); Glucose 116 mg/dL (74-106)
[2024-02-20] MEDS ORDERED: VANCOMYCIN 1GM/250ML KIT 250 ML IV SCH (16:00)
[2024-02-20 16:39] LABS: Basophils # (auto) 0 10 ^3/uL (0-0.2); Basophils % (auto) 0.4 % (0.0-2.0); Eosinophils # (auto) 0.3 10 ^3/uL (0-0.8); Eosinophils % (auto) 2.6 % (0.0-7.0); Hematocrit 33.4 % (41.0-53.0); Hemoglobin 10.8 g/dL (13.5-17.5); Lymphocytes % (auto) 16.2 % (10.0-50.0); Mean Corpuscular Hemoglobin 28.8 pg (28.0-32.0); Mean Corpuscular Hgb Conc. 32.5 g/dL (32.0-36.0); Mean Corpuscular Volume 88.7 fL (80.0-100.0); Monocytes # (auto) 0.6 10 ^3/uL (0-1.3); Neutrophils # (auto) 9.3 10 ^3/uL (1.6-8.6); Neutrophils % (auto) 75.8 % (37.0-80.0); Nucleated Red Blood Cells % 0.1 %; Platelet Count (auto) 329 10^3/uL (140-450); Red Blood Cells 3.77 10^6/uL (4.5-5.90); Red Cell Distribution Width 14.2 % (11.8-14.3); White Blood Cell 12.2 10^3/uL (4.4-10.8)
--- NOTE | 2024-02-20 19:56 | DVHPN2 ---
Consult Progress Note Date Seen: Feb 20, 2024 Subjective Patient reports: Feels better (no fevers in the last 48 hours , tenderness is starting to fade away from his groin and is able to get up and walk without pain ) Objective vital signs Vital Sign Date Time Temp Pulse Resp B/P (MAP) Pulse Ox O2 Delivery O2 Flow Rate FiO2 02/20/24 17:00 97.5 71 16 102/59 (73) 96 97.5 02/20/24 08:00 Room Air* 0 21 Total Intake and Output 02/19/24 02/19/24 02/20/24 15:00 23:00 07:00 Intake Total 225 ml 3056 ml 925 ml Output Total 890 ml 1950 ml Balance 225 ml 2166 ml -1025 ml medications Current Medications Medications Dose Ordered Sig/Maninder Route Start Time Stop Time Status Last Admin Dose Admin Vancomycin HCl 0 ml @ 0 mls/hr UD IV 02/17/24 17:30 Cancel Sodium Chloride 1,000 ml @ 100 mls/hr Q10H IV 02/17/24 17:30 02/19/24 20:54 100 MLS/HR Lorazepam 0.5 mg Q6HP PRN PO 02/17/24 17:30 02/19/24 23:02 0.5 MG Al Hydrox/Mg Hydrox/Simethicone 30 ml Q6HP PRN PO 02/17/24 17:30 Acetaminophen 650 mg Q6HP PRN PO 02/17/24 17:30 02/17/24 21:35 650 MG Acetaminophen/ Hydrocodone Bitart 1 tab Q4HP PRN PO 02/17/24 17:30 02/20/24 14:03 1 TAB Ondansetron HCl 4 mg Q4HP PRN IV 02/17/24 17:30 Morphine Sulfate 2 mg Q4HPRN PRN IV 02/17/24 17:30 02/20/24 09:14 2 MG Piperacillin Sod/ Tazobactam Sod 100 ml @ 25 mls/hr Q8H IV 02/18/24 12:00 02/20/24 11:23 25 MLS/HR Vancomycin HCl 250 ml @ 250 mls/hr Q8H IV 02/20/24 16:00 Cancel Trimethoprim/ Sulfamethoxazole 1 tab Q12HR PO 02/20/24 22:00 PHYSICAL EXAM: - GENERAL: Alert and oriented x 3. No acute distress. Well-nourished. - EYES: EOMI. Anicteric. - HENT: Moist mucous membranes. No scleral icterus. No cervical lymphadenopathy. - LUNGS: Clear to auscultation bilaterally. No accessory muscle use. - CARDIOVASCULAR: Regular rate and rhythm. No murmur. No JVD. - ABDOMEN: Soft, non-tender and non-distended. No palpable masses. - EXTREMITIES: No edema. Non-tender.SKIN: No rashes or lesions. Warm. - NEUROLOGIC: No focal neurological deficits. CN II-XII grossly intact, but not individually tested. - PSYCHIATRIC: Cooperative. Appropriate mood and affect. laboratory and microbiology Laboratory Tests 02/20/24 04:47 Test 02/20/24 04:47 Range/Units Serum Glucose 116 H 74-106 mg/dL Problem List/Assessment/Plan Problems(with codes): (1) Cellulitis (2) Sepsis (3) HIV (human immunodeficiency virus infection) (4) Inguinal adenopathy Problem List/Assessment/Plan Assessment/Plan Problems(with codes): (1) Cellulitis (2) Sepsis (3) HIV (human immunodeficiency virus infection) (4) Inguinal adenopathy Plan/Recommendation ASSESSMENT AND PLAN: ID Problem List: - Recurrent groin cellulitis - HIV infection - hx of Syphilis - hx of Gonorrhea - Severe groin pain - Sepsis Assessment This is a 34 y.o. male with a past medical history of HIV infection who presents with severe groin pain and recurrent cellulitis of the groin. In terms of his HIV history, the patient follows with Dr. Kaufman in [facility]. His CD4 count in June 2023 was 779; viral load undetectable. He is compliant with his home regimen of Biktarvy. He has a known history of syphilis and gonorrhea, last RPR 1:4, and a past positive hepatitis C antibody. On physical exam, the patient is noted to have redness and irritation of the groin area. No deep ulcerations, rashes, or significant ulcers to suggest sexually transmitted diseases. Laboratory findings on admission include leukocytosis with WBC 15.7, hemoglobin 9.9, platelets 258, sodium 135, BUN 10, creatinine 1.2. Urinalysis shows leukocyte esterase negative. Imaging studies: - Pelvic CT scan shows mild soft tissue edema of the pelvic and upper thigh with significant left and moderate right inferior buttock tissue edema. No associated foci of air or adrenal fluid collection. Bilateral inguinal hernias most likely reactive. - Chest X-ray shows no cardiopulmonary disease. RPR is 1:2, patients baseline 02/19: clinically improving on current regimen Plan: - Continue Zosyn, switch vancomycin to Bactrim. - gonorrhea and chlamydia - will fu on blood cultures. - Follow up on urine drug screen. - hold home HIV regimen at this time pending further evaluation. - Monitor vital signs and assess the need for blood pressure support. Isolation Precautions: Standard Assessment and plan was discussed with the patient as written above. Plan is subject to change pending incorporation of new incoming information/diagnostics. Updates may be added as addendum at the bottom (OR TOP) of this note. Thank you for the interesting consult. ID will continue to follow. Please contact Infectious Disease for any questions or concerns. Christin Mercado M.D. [facility] Ph: ? Plan discussed with: CHRISTIN Gee MD Feb 20, 2024 19:56
[2024-02-20] MEDS: SULFAMETHOX W/TRIMETH(800/160MG) DS TAB PO SCH (21:54)
[2024-02-21] VITALS (8 sets, daily range): BP systolic 99–135; BP diastolic 47–71; PULSE 73–82; RESP 16–18; TEMP 97.9–98.2; O2SAT 95–99
[2024-02-21 06:44] LABS: Basophils # (auto) 0.1 10 ^3/uL (0-0.2); Basophils % (auto) 0.9 % (0.0-2.0); Eosinophils # (auto) 0.3 10 ^3/uL (0-0.8); Eosinophils % (auto) 3.8 % (0.0-7.0); Hematocrit 35.5 % (41.0-53.0); Hemoglobin 11.7 g/dL (13.5-17.5); Lymphocytes # (auto) 1.8 10 ^3/uL (0.4-5.4); Lymphocytes % (auto) 22.3 % (10.0-50.0); Mean Corpuscular Hgb Conc. 33.1 g/dL (32.0-36.0); Mean Corpuscular Volume 87.7 fL (80.0-100.0); Monocytes # (auto) 0.6 10 ^3/uL (0-1.3); Monocytes % (auto) 6.9 % (0.0-12.0); Neutrophils # (auto) 5.3 10 ^3/uL (1.6-8.6); Neutrophils % (auto) 66.1 % (37.0-80.0); Nucleated Red Blood Cells % 0.1 %; Platelet Count (auto) 378 10^3/uL (140-450); Red Blood Cells 4.05 10^6/uL (4.5-5.90); Red Cell Distribution Width 13.7 % (11.8-14.3); White Blood Cell 8.1 10^3/uL (4.4-10.8)
[2024-02-21] MEDS: ONDANSETRON HCL 4 MG/2 ML VIAL IV PRN (10:16)
--- NOTE | 2024-02-21 12:33 | DVHPN2 ---
Assessment/Plan Assessment/Plan Progress note Subjective 34-year-old male with HIV, compliant with Biktarvy, last CD4 700, viral load undetectable, following with ID in [place] admitted for recurrent groin abscess Patient is seen by me today during rounds Diarrhea resolved. Abscess improved. Will discuss with ID re abx duration Objective Physical exam Alert, oriented x3 PERRLA No JVD Clear breath sounds bilaterally S1-S2 regular rate and rhythm no murmur Abdomen soft nontender, no organomegaly Moving all four extremities No lower extremity edema Groin abscess Lab Leukocytosis Dirty UA 07/11 CD4 776, viral load undetectable Imaging CT showed groin abscess Assessment and plan HIV, CD4 700s Sepsis secondary to groin abscess History of syphilis History of gonorrhea Diarrhea, resolved ID consult appreciated Continue with Zosyn, vanc switched to linezolid diarrhea resolved, will dc cdiff Continue with Biktarvy Replete electrolytes Diet regular DVT prophylaxis ambulatory Plan discussed with: Patient Date of Service: Feb 21, 2024 Billing Provider: BEST WAITE MD Common Visit Codes: [id number] INP/OBS CARE(HIGH) BEST WAITE MD Feb 21, 2024 12:33
[2024-02-21] MEDS: PIPERACILLIN-TAZOB 3.375GM 100 ML IV SCH (18:24)
--- NOTE | 2024-02-21 23:09 | DVHPN2 ---
Consult Progress Note Date Seen: Feb 21, 2024 Subjective Patient reports: Other (groin swelling is improved and no longer tender and able to ambulate ) Objective vital signs Vital Sign Date Time Temp Pulse Resp B/P (MAP) Pulse Ox O2 Delivery O2 Flow Rate FiO2 02/21/24 21:00 98.0 82 17 112/50 (70) 95 98.0 02/21/24 20:00 Room Air* 0 21 Total Intake and Output 02/20/24 02/20/24 02/21/24 15:00 23:00 07:00 Intake Total 25 ml 2550 ml 425 ml Output Total 1015 ml Balance 25 ml 2550 ml -590 ml medications Current Medications Medications Dose Ordered Sig/Maninder Route Start Time Stop Time Status Last Admin Dose Admin Vancomycin HCl 0 ml @ 0 mls/hr UD IV 02/17/24 17:30 Cancel Sodium Chloride 1,000 ml @ 100 mls/hr Q10H IV 02/17/24 17:30 02/21/24 21:34 100 MLS/HR Lorazepam 0.5 mg Q6HP PRN PO 02/17/24 17:30 02/21/24 21:32 0.5 MG Al Hydrox/Mg Hydrox/Simethicone 30 ml Q6HP PRN PO 02/17/24 17:30 Acetaminophen 650 mg Q6HP PRN PO 02/17/24 17:30 02/17/24 21:35 650 MG Acetaminophen/ Hydrocodone Bitart 1 tab Q4HP PRN PO 02/17/24 17:30 02/20/24 14:03 1 TAB Ondansetron HCl 4 mg Q4HP PRN IV 02/17/24 17:30 02/21/24 10:16 4 MG Morphine Sulfate 2 mg Q4HPRN PRN IV 02/17/24 17:30 02/21/24 10:11 2 MG Vancomycin HCl 250 ml @ 250 mls/hr Q8H IV 02/20/24 16:00 Cancel Trimethoprim/ Sulfamethoxazole 1 tab Q12HR PO 02/20/24 22:00 02/21/24 21:08 1 TAB Levofloxacin/ Dextrose 100 ml @ 100 mls/hr DAILY IV 02/22/24 10:00 PHYSICAL EXAM: - GENERAL: Alert and oriented x 3. No acute distress. Well-nourished. - EYES: EOMI. Anicteric. - HENT: Moist mucous membranes. No scleral icterus. No cervical lymphadenopathy. - LUNGS: Clear to auscultation bilaterally. No accessory muscle use. - CARDIOVASCULAR: Regular rate and rhythm. No murmur. No JVD. - ABDOMEN: Soft, non-tender and non-distended. No palpable masses. - EXTREMITIES: No edema. Non-tender.SKIN: No rashes or lesions. Warm. - NEUROLOGIC: No focal neurological deficits. CN II-XII grossly intact, but not individually tested. - PSYCHIATRIC: Cooperative. Appropriate mood and affect laboratory and microbiology Laboratory Tests 02/21/24 05:18 02/20/24 04:47 Test 02/20/24 04:47 Range/Units Serum Glucose 116 H 74-106 mg/dL Problem List/Assessment/Plan Problems(with codes): (1) Cellulitis (2) Sepsis (3) HIV (human immunodeficiency virus infection) (4) Inguinal adenopathy Problem List/Assessment/Plan Assessment/Plan Problems(with codes): (1) Cellulitis (2) Sepsis (3) HIV (human immunodeficiency virus infection) (4) Inguinal adenopathy Plan/Recommendation ASSESSMENT AND PLAN: ID Problem List: - Recurrent groin cellulitis - HIV infection - hx of Syphilis - hx of Gonorrhea - Severe groin pain - Sepsis Assessment This is a 34 y.o. male with a past medical history of HIV infection who presents with severe groin pain and recurrent cellulitis of the groin. In terms of his HIV history, the patient follows with Dr. Kaufman in [facility]. His CD4 count in June 2023 was 779; viral load undetectable. He is compliant with his home regimen of Biktarvy. He has a known history of syphilis and gonorrhea, last RPR 1:4, and a past positive hepatitis C antibody. On physical exam, the patient is noted to have redness and irritation of the groin area. No deep ulcerations, rashes, or significant ulcers to suggest sexually transmitted diseases. Laboratory findings on admission include leukocytosis with WBC 15.7, hemoglobin 9.9, platelets 258, sodium 135, BUN 10, creatinine 1.2. Urinalysis shows leukocyte esterase negative. Imaging studies: - Pelvic CT scan shows mild soft tissue edema of the pelvic and upper thigh with significant left and moderate right inferior buttock tissue edema. No associated foci of air or adrenal fluid collection. Bilateral inguinal hernias most likely reactive. - Chest X-ray shows no cardiopulmonary disease. RPR is 1:2, patients baseline 02/19: clinically improving on current regimen 02/20: white count is 8.1 Plan: - stop zosyn -start IV levofloxacin - Continue Bactrim - recommend sending patient home on oral bactrum 1 tab 2x strength 2x a day and levofloxacin 500 milligrams 1x a day for 10 more days if patient continues to tolerate regimen, as well as 30 days of biktarvy ( patient is out of bicktarvy and needs a refill - follow up with infectious disease in 4 weeks - gonorrhea and chlamydia - will fu on blood cultures. - Follow up on urine drug screen. - hold home HIV regimen at this time pending further evaluation. - Monitor vital signs and assess the need for blood pressure support. Isolation Precautions: Standard Assessment and plan was discussed with the patient as written above. Plan is subject to change pending incorporation of new incoming information/diagnostics. Updates may be added as addendum at the bottom (OR TOP) of this note. Thank you for the interesting consult. ID will continue to follow. Please contact Infectious Disease for any questions or concerns. Christin Mercado M.D. [facility] Ph: ? Plan discussed with: Other Dietary Evaluation Review Comments: 1) Continue current plan of care Expected Outcomes/Goals: F/U in 3-5 days CHRISTIN MERCADO MD Feb 21, 2024 23:09
[2024-02-22 01:13] VITALS: BP 120/47; PULSE 71; RESP 17; TEMP 98; O2SAT 94
[2024-02-22 05:00] VITALS: BP 111/54; PULSE 77; RESP 18; TEMP 98.3; O2SAT 96
[2024-02-22 07:18] LABS: Hematocrit 37.2 % (41.0-53.0); Hemoglobin 12.3 g/dL (13.5-17.5); Mean Corpuscular Hgb Conc. 33.1 g/dL (32.0-36.0); Mean Corpuscular Volume 87.6 fL (80.0-100.0); Platelet Count (auto) 405 10^3/uL (140-450); Red Blood Cells 4.24 10^6/uL (4.5-5.90); Red Cell Distribution Width 13.9 % (11.8-14.3); White Blood Cell 8.7 10^3/uL (4.4-10.8)
[2024-02-22 07:37] LABS: Band Neutrophils % (manual) 0; Basophils % (manual) 0 (0.0-2.0); Blast Cells 0; Metamyelocytes % 0; Myelocytes % 0; Promyelocytes % 0; Reactive Lymphocytes 0
[2024-02-22 07:56] LABS: Eosinophils % (manual) 1 (0-7); Lymphocytes % (manual) 24 (10.0-50.0); Monocytes % (manual) 14 (0-12)
[2024-02-22 07:57] LABS: Platelet Estimate Adequate
[2024-02-22] MEDS: levoFLOXacin 500MG 100 ML IV SCH (08:40)
[2024-02-22 09:00] VITALS: BP 110/66; PULSE 75; RESP 15; TEMP 98.2; O2SAT 96
[2024-02-22] MEDS ORDERED: BACDST PO (12:28)
[2024-02-22] MEDS ORDERED: LEVO500T91 PO (12:28)
[2024-02-22] MEDS ORDERED: BICT1TAB PO (12:28)
[2024-02-22 13:00] VITALS: BP 101/65; PULSE 81; RESP 18; TEMP 98.1; O2SAT 96
--- NOTE | 2024-02-22 14:21 | DVHDS2 ---
Discharge Summary Date of Admission Feb 17, 2024 at 17:19 Date of Discharge: Feb 22, 2024 Labs/Diagnostic Data: Laboratory Results Test 02/22/24 06:39 02/21/24 23:45 02/21/24 05:18 02/20/24 15:27 White Blood Count 8.7 10^3/uL (4.4-10.8) Red Blood Count 4.24 10^6/uL (4.5-5.90) Hemoglobin 12.3 g/dL (13.5-17.5) Hematocrit 37.2 % (41.0-53.0) Mean Corpuscular Volume 87.6 fL (80.0-100.0) Mean Corpuscular Hemoglobin 29.0 pg (28.0-32.0) Mean Corpuscular Hemoglobin Concent 33.1 g/dL (32.0-36.0) Red Cell Distribution Width 13.9 % (11.8-14.3) Platelet Count 405 10^3/uL (140-450) Mean Platelet Volume 7.9 fL (6.9-10.8) Neutrophils (%) (Auto) % (37.0-80.0) Lymphocytes (%) (Auto) % (10.0-50.0) Monocytes (%) (Auto) % (0.0-12.0) Basophils (%) (Auto) % (0.0-2.0) Neutrophils # (Auto) 10 ^3/uL (1.6-8.6) Lymphocytes # (Auto) 10 ^3/uL (0.4-5.4) Monocytes # (Auto) 10 ^3/uL (0-1.3) Differential Total Cells Counted 100.0 (100) Neutrophils % (Manual) 61 (37.0-80.0) Band Neutrophils % (Manual) 0 Lymphocytes % (Manual) 24 (10.0-50.0) Monocytes % (Manual) 14 (0-12) Eosinophils % (Manual) 1 (0-7) Basophils % (Manual) 0 (0.0-2.0) Metamyelocytes % (manual) 0 Myelocytes % (Manual) 0 Promyelocytes % (Manual) 0 Blast Cells % (Manual) 0 Reactive Lymphocytes 0 Platelet Estimate Adequate Stool Occult Blood Negative (Negative) Stool Occult Blood Sample #3 (Negative) Stool for White Cells None seen Eosinophils (%) (Auto) 3.8 % (0.0-7.0) Eosinophils # (Auto) 0.3 10 ^3/uL (0-0.8) Basophils # (Auto) 0.1 10 ^3/uL (0-0.2) Nucleated Red Blood Cells 0.1 % Random Vancomycin Level 7.4 ug/mL (5-10) Test 02/20/24 04:47 02/19/24 00:15 02/17/24 19:13 02/17/24 16:10 Sodium Level 137 mmol/L (136-145) Potassium Level 4.0 mmol/L (3.5-5.1) Chloride Level 105 mmol/L (98-107) Carbon Dioxide Level 24 mmol/L (20-31) Anion Gap 8 (5-15) Blood Urea Nitrogen 12 mg/dL (9-23) Creatinine 1.09 mg/dL (0.700-1.30) Glomerular Filtration Rate Calc 90 mL/min (>90) BUN/Creatinine Ratio 11.0 (10.0-20.0) Serum Glucose 116 mg/dL (74-106) Calcium Level 9.5 mg/dL (8.7-10.4) Vancomycin Level Trough 20.9 ug/mL (5-10) RPR Titer Additional Testing 1:2 titer (NonRea<1:1) Urine Color Yellow (Yellow) Urine Clarity Clear (Clear) Urine pH 6.5 (5.0-9.0) Urine Specific Pace > 1.035 (1.001-1.035) Urine Protein 1+ (Negative) Urine Ketones Negative (Negative) Urine Blood 1+ /uL (Negative) Urine Nitrite Negative (Negative) Urine Bilirubin Negative (Negative) Urine Urobilinogen 2 mg/dL (Negative) Urine Leukocyte Esterase Negative /uL (Negative) Urine RBC 33 /hpf (0 - 3) Urine WBC <1 /hpf (0 - 3) Urine Squamous Epithelial Cells Few /hpf (<5) Urine Bacteria Few /hpf (None Seen) Urine Glucose Normal mg/dL (Normal) Troponin I High Sensitivity 33 ng/L (</=54) Test 02/17/24 13:48 02/17/24 13:29 POC Glucose 86 mg/dl (70-106) Lactic Acid Level 0.9 mmol/L (0.4-2.0) Total Bilirubin 1.5 mg/dL (0.2-1.0) Aspartate Amino Transferase (AST) 15 U/L (13-40) Alanine Aminotransferase (ALT) 14 U/L (7-40) Alkaline Phosphatase 85 U/L (46-116) Total Protein 6.9 g/dL (5.7-8.2) Albumin 3.8 g/dL (3.2-4.8) Other Laboratory Tests 02/22/24 06:39 02/20/24 04:47 Brief Hx & Hospital Course: Year-old male with HIV, compliant with medication admitted for groin abscess, history of syphilis and gonorrhea, started on IV antibiotics with significant improvement, follow up by ID, switch to oral antibiotics. Discharge home with Bactrim levofloxacin and to continue Biktarvy. Patient to follow up with ID Condition at Discharge: Good Final Diagnosis/Problems List Groin abscess Discharge Disposition: Home Discharge Instruct/Medications Diet: Regular Activity: No Restrictions, As Tolerated Follow Up/Referral: follow up with ID Medications: bactrim DS, biktarvy, levofloxacin 36 Discharge Statement: "Patient was advised to return to the ER or call 911 if any headaches, dizziness, shortness of breath, chest pain, abdominal pain, bleeding, fevers, or worsening of medical condition. Patient was counseled about treatment plan, medications, possible side effects, patientverbalized understanding. All questions were answered to the best of my ability. This discharge took greater then 30 minutes in planning, reviewing documentation, counseling the patient, and discussing with other team members." ASSESSMENT ASSESSMENT Assessment Groin abscess HIV, CD4 700s Sepsis secondary to groin abscess History of syphilis History of gonorrhea Diarrhea, resolved Date of Service: Feb 22, 2024 Billing Provider: BEST WAITE MD Common Visit Codes: 82871-TTT/OBS DISCH DAY >30min BEST WAITE MD Feb 22, 2024 14:21
--- NOTE | 2024-02-23 13:53 | DVHPN2 ---
Consult Progress Note Date Seen: Feb 22, 2024 Subjective Patient reports: Feels better (no pain in groin area and swelling has gone down as well as redness ) Objective vital signs Vital Sign Date Time Temp Pulse Resp B/P (MAP) Pulse Ox O2 Delivery O2 Flow Rate FiO2 02/22/24 13:00 98.1 81 18 101/65 (77) 96 98.1 02/22/24 07:54 Room Air* 0 21 Total Intake and Output 02/22/24 02/22/24 02/23/24 15:00 23:00 07:00 Intake Total 100 ml Balance 100 ml medications Current Medications Medications Dose Ordered Sig/Maninder Route Start Time Stop Time Status Last Admin Dose Admin Vancomycin HCl 0 ml @ 0 mls/hr UD IV 02/17/24 17:30 Cancel Vancomycin HCl 250 ml @ 250 mls/hr Q8H IV 02/20/24 16:00 Cancel PHYSICAL EXAM: - GENERAL: Alert and oriented x 3. No acute distress. Well-nourished. - EYES: EOMI. Anicteric. - HENT: Moist mucous membranes. No scleral icterus. No cervical lymphadenopathy. - LUNGS: Clear to auscultation bilaterally. No accessory muscle use. - CARDIOVASCULAR: Regular rate and rhythm. No murmur. No JVD. - ABDOMEN: Soft, non-tender and non-distended. No palpable masses. - EXTREMITIES: No edema. Non-tender.SKIN: No rashes or lesions. Warm. - NEUROLOGIC: No focal neurological deficits. CN II-XII grossly intact, but not individually tested. - PSYCHIATRIC: Cooperative. Appropriate mood and affect laboratory and microbiology Laboratory Tests 02/22/24 06:39 02/20/24 04:47 Test 02/20/24 04:47 Range/Units Serum Glucose 116 H 74-106 mg/dL Problem List/Assessment/Plan Problems(with codes): (1) Inguinal adenopathy (2) HIV (human immunodeficiency virus infection) (3) Sepsis (4) Cellulitis Problem List/Assessment/Plan Assessment/Plan Problems(with codes): (1) Cellulitis (2) Sepsis (3) HIV (human immunodeficiency virus infection) (4) Inguinal adenopathy Plan/Recommendation ASSESSMENT AND PLAN: ID Problem List: - Recurrent groin cellulitis - HIV infection - hx of Syphilis - hx of Gonorrhea - Severe groin pain - Sepsis Assessment This is a 34 y.o. male with a past medical history of HIV infection who presents with severe groin pain and recurrent cellulitis of the groin. In terms of his HIV history, the patient follows with Dr. Kaufman in [facility]. His CD4 count in June 2023 was 779; viral load undetectable. He is compliant with his home regimen of Biktarvy. He has a known history of syphilis and gonorrhea, last RPR 1:4, and a past positive hepatitis C antibody. On physical exam, the patient is noted to have redness and irritation of the groin area. No deep ulcerations, rashes, or significant ulcers to suggest sexually transmitted diseases. Laboratory findings on admission include leukocytosis with WBC 15.7, hemoglobin 9.9, platelets 258, sodium 135, BUN 10, creatinine 1.2. Urinalysis shows leukocyte esterase negative. Imaging studies: - Pelvic CT scan shows mild soft tissue edema of the pelvic and upper thigh with significant left and moderate right inferior buttock tissue edema. No associated foci of air or adrenal fluid collection. Bilateral inguinal hernias most likely reactive. - Chest X-ray shows no cardiopulmonary disease. RPR is 1:2, patients baseline 02/19: clinically improving on current regimen 02/20: white count is 8.1 02/21: tolerating levofloxacin and bactrum and responding to therapy Plan: - stop zosyn -start IV levofloxacin - Continue Bactrim - recommend sending patient home on oral bactrum 1 tab 2x strength 2x a day and levofloxacin 500 milligrams 1x a day for 10 more days if patient continues to tolerate regimen, as well as 30 days of biktarvy ( patient is out of bicktarvy and needs a refill - follow up with infectious disease in 4 weeks - gonorrhea and chlamydia - will fu on blood cultures. - Follow up on urine drug screen. - hold home HIV regimen at this time pending further evaluation. - Monitor vital signs and assess the need for blood pressure support. Isolation Precautions: Standard Assessment and plan was discussed with the patient as written above. Plan is subject to change pending incorporation of new incoming information/diagnostics. Updates may be added as addendum at the bottom (OR TOP) of this note. Thank you for the interesting consult. ID will continue to follow. Please contact Infectious Disease for any questions or concerns. Christin Mercado M.D. [facility] Ph: ? Plan discussed with: Other Dietary Evaluation Review Comments: 1) Continue current plan of care Expected Outcomes/Goals: F/U in 3-5 days CHRISTIN MERCADO MD Feb 23, 2024 13:53
== END 2024-02-22 15:35 | disposition home or self-care (01) | DRG 720 ==
LOC: EDBD 12:31 → ER 12:31 → OVERFLOW 17:19 → WEST WING 02-18 18:03
PROVIDERS: ADMIT Hospitalist; ATTEND Student in an Organized Health Care Education/Training Program
DX: A41.9 Sepsis, unspecified organism (principal); L02.214 Cutaneous abscess of groin; L03.314 Cellulitis of groin; R59.0 Localized enlarged lymph nodes; K40.20 Bilateral inguinal hernia, without obstruction or gangrene, not specified as recurrent; Z87.39 Personal history of other diseases of the musculoskeletal system and connective tissue; Z79.899 Other long term (current) drug therapy; Z21 Asymptomatic human immunodeficiency virus [HIV] infection status
CPT/HCPCS: 36415; 71045; 72193; 80048; 80053; 80202; 81001; 82270; 82962; 83605; 84484; 85007; 85025; 85027; 85048; 86592; 87040; 87045; 87427; 99291; G0378; J1956; J2405; J2543; J3490